=== PATIENT | female | born 1985 | race Caucasian/White ===

== ENCOUNTER 2018-07-20 10:57 | Emergency (ER) | payer OTHER ==
[2018-07-20 11:26] VITALS: BP 125/75; PULSE 80; RESP 18; TEMP 100.7
--- NOTE | 2018-07-20 11:59 | ED ---
URI HPI - General Chief Complaint: Upper Respiratory Infection Stated Complaint: Cold Time Seen by Provider: 07/20/18 11:35 Source: patient, RN notes reviewed, old records reviewed Mode of arrival: ambulatory Limitations: no limitations - History of Present Illness Initial Comments: 33 year old presents with fever, cough, upper respiratory congestion. Patient has had history of sick contacts with son with similiar complaints. Patient has had no recent motrin or tylenol. She is a smoker. She reports that her cough is productive. - Related Data Previous Rx's Medication Instructions Recorded Acetaminophen Tab [Tylenol Tab] 500 mg PO Q6H #20 tablet 07/20/18 Albuterol Inhaler [Ventolin Hfa 1 - 2 puff INHALATION RT-Q6H PRN 07/20/18 Inhaler] #1 inhaler Azithromycin [Zithromax Z-pack] 250 mg PO DIRECTED #6 tab 07/20/18 guaiFENesin-DM 600/30MG [Mucinex 2 each PO Q12HR #20 tab.er.12h 07/20/18 Dm] methylPREDNISolone Dose Pack 4 mg PO DIRECTED #21 package 07/20/18 [Medrol Dose Pack] Allergies Allergy/AdvReac Type Severity Reaction Status Date / Time morphine Allergy Chest Pain Verified 07/20/18 11:27 Review of Systems ROS Statement: Those systems with pertinent positive or pertinent negative responses have been documented in the HPI. ROS Other: All systems not noted in ROS Statement are negative. Past Medical History Past Medical History: COPD Additional Past Medical History / Comment(s): anemia, hep C History of Any Multi-Drug Resistant Organisms: None Reported Past Surgical History: Section, Cholecystectomy Additional Past Surgical History / Comment(s): e-sure procedure Past Psychological History: No Psychological Hx Reported Smoking Status: Current every day smoker Past Alcohol Use History: Occasional Past Drug Use History: Marijuana General Exam - General Exam Comments Initial Comments: This is a well appearing 33 year old female, no distress. Limitations: no limitations General appearance: alert, in no apparent distress Head exam: Present: atraumatic, normocephalic, normal inspection Eye exam: Present: normal appearance, PERRL, EOMI. Absent: scleral icterus, conjunctival injection, periorbital swelling ENT exam: Present: normal exam, mucous membranes moist Neck exam: Present: normal inspection. Absent: tenderness, meningismus, lymphadenopathy Respiratory exam: Present: normal lung sounds bilaterally, rhonchi (Rhonchi noted, cleared with coughing. ), other (Productive cough). Absent: respiratory distress, wheezes, rales, stridor GI/Abdominal exam: Present: soft, normal bowel sounds. Absent: distended, tenderness, guarding, rebound, rigid Extremities exam: Present: normal inspection, full ROM, normal capillary refill. Absent: tenderness, pedal edema, joint swelling, calf tenderness Back exam: Present: normal inspection Neurological exam: Present: alert, oriented X3, CN II-XII intact Psychiatric exam: Present: normal affect, normal mood Skin exam: Present: warm, dry, intact, normal color. Absent: rash Course Vital Signs 07/20/18 07/20/18 11:23 12:23 Temperature 100.7 F H Pulse Rate 80 Respiratory 18 18 Rate Blood Pressure 125/75 O2 Sat by Pulse 100 Oximetry Medical Decision Making - Medical Decision Making 33 year old female with fever, cough, and history of sick contacts. Patient has had symptoms for 1 week. Patient has rhoncus long sounds cleared with coughing. She arrives withfever. At this time will treat patient for bronchitis. Discharge with steriods and Zpak. All question answered and return parameters discussed. Disposition Clinical Impression: Upper respiratory infection Disposition: HOME SELF-CARE Condition: Good Instructions: Upper Respiratory Infection (ED) Additional Instructions: Patient has follow-up with primary care physician. Take the medication as prescribed. Continue [id number] cough and congestion syrup. Return to emergency department if any alarming signs or symptoms occur. Prescriptions: Acetaminophen Tab [Tylenol Tab] 500 mg PO Q6H #20 tablet Albuterol Inhaler [Ventolin Hfa Inhaler] 1 - 2 puff INHALATION RT-Q6H PRN #1 inhaler PRN Reason: Shortness Of Breath Azithromycin [Zithromax Z-pack] 250 mg PO DIRECTED #6 tab guaiFENesin-DM 600/30MG [Mucinex Dm] 2 each PO Q12HR #20 tab.er.12h methylPREDNISolone Dose Pack [Medrol Dose Pack] 4 mg PO DIRECTED #21 package Is patient prescribed a controlled substance at d/c from ED?: No Referrals: None,Stated [Primary Care Provider] - 1-2 days Steph Grant MD [STAFF PHYSICIAN] - 1-2 days Time of Disposition: 11:56
== END 2018-07-20 12:24 | disposition home or self-care (01) ==
LOC: EC 10:57
DX: J06.9 Acute upper respiratory infection, unspecified (principal); J40 Bronchitis, not specified as acute or chronic; F17.200 Nicotine dependence, unspecified, uncomplicated; Z88.5 Allergy status to narcotic agent
CPT/HCPCS: 99283

== ENCOUNTER 2019-03-11 15:39 | Emergency (ER) | payer OTHER ==
[2019-03-11 15:46] VITALS: TEMP 98.3
[2019-03-11] MEDS ORDERED: IPRATROPIUM-ALBUTEROL 3 ML NEB INHALATION STA (16:17)
--- NOTE | 2019-03-11 16:18 | ED ---
General Adult HPI - General Chief complaint: Upper Respiratory Infection Stated complaint: Chest congestion Time Seen by Provider: 03/11/19 16:03 Source: patient, RN notes reviewed Mode of arrival: ambulatory Limitations: no limitations - History of Present Illness Initial comments: 33-year-old female with a past medical history of COPD presents to the emergency department for a chief complaint of cough and congestion times one week. Patient states this started as a sore throat and congestion. Patient states she is now coughing. States cough is productive. Denies any significant shortness of breath. States that when she coughs hard sometimes her chest hurts but denies chest pain otherwise. Patient states the last time she felt like this sh e had pneumonia and would like to make sure that is not happening. States she also had her bring her daughter in for her wrist so. She would be evaluated.Patient has no other complaints at this time including shortness of breath, chest pain, abdominal pain, nausea or vomiting, headache, or visual changes. - Related Data Previous Rx's Medication Instructions Recorded Acetaminophen Tab [Tylenol Tab] 500 mg PO Q6H #20 tablet 07/20/18 Albuterol Inhaler [Ventolin Hfa 1 - 2 puff INHALATION RT-Q6H PRN 07/20/18 Inhaler] #1 inhaler Azithromycin [Zithromax Z-pack] 250 mg PO DIRECTED #6 tab 07/20/18 guaiFENesin-DM 600/30MG [Mucinex 2 each PO Q12HR #20 tab.er.12h 07/20/18 Dm] methylPREDNISolone Dose Pack 4 mg PO DIRECTED #21 package 07/20/18 [Medrol Dose Pack] Azithromycin [Zithromax Z-pack] 250 mg PO DIRECTED #6 tab 03/11/19 predniSONE 50 mg PO DAILY #5 tablet 03/11/19 Allergies Allergy/AdvReac Type Severity Reaction Status Date / Time morphine Allergy Chest Pain Verified 03/11/19 15:46 Review of Systems ROS Statement: Those systems with pertinent positive or pertinent negative responses have been documented in the HPI. ROS Other: All systems not noted in ROS Statement are negative. Past Medical History Past Medical History: COPD Additional Past Medical History / Comment(s): anemia, hep C History of Any Multi-Drug Resistant Organisms: None Reported Past Surgical History: Section, Cholecystectomy Additional Past Surgical History / Comment(s): e-sure procedure Past Psychological History: No Psychological Hx Reported Smoking Status: Current every day smoker Past Alcohol Use History: Occasional Past Drug Use History: Marijuana General Exam Limitations: no limitations General appearance: alert, in no apparent distress Head exam: Present: atraumatic, normocephalic, normal inspection Eye exam: Present: normal appearance, PERRL, EOMI. Absent: scleral icterus, conjunctival injection, periorbital swelling ENT exam: Present: normal exam, normal oropharynx, mucous membranes moist, TM's normal bilaterally, normal external ear exam, other (Nasal congestion noted) Neck exam: Present: normal inspection, full ROM. Absent: tenderness, meningismus, lymphadenopathy Respiratory exam: Present: normal lung sounds bilaterally, wheezes (Mild wheezes noted in both lung bases.), chest wall tenderness (Patient does have some chest wall tenderness with palpation.). Absent: respiratory distress, rales, rhonchi, stridor Cardiovascular Exam: Present: regular rate, normal rhythm, normal heart sounds. Absent: systolic murmur, diastolic murmur, rubs, gallop, clicks Neurological exam: Present: alert, oriented X3, CN II-XII intact Psychiatric exam: Present: normal affect, normal mood Course Vital Signs 03/11/19 03/11/19 03/11/19 15:44 16:45 16:53 Temperature 98.3 F Pulse Rate 90 72 76 Respiratory 16 Rate Blood Pressure 128/78 O2 Sat by Pulse 100 Oximetry 03/11/19 17:05 Temperature Pulse Rate Respiratory 18 Rate Blood Pressure O2 Sat by Pulse Oximetry Medical Decision Making - Medical Decision Making 33-year-old female presents to the emergency determine for chief complaint of sore throat cough and congestion. States this is been going on for about a week. States her throat has resolved the patient is still congested and coughing. States cough is productive. Patient is a smoker and is currently smoking. I did discuss greater than 3 minutes of smoking cessation with patient. On exam patient has mild wheezes noted in the lung bases. She does have some tenderness noted of the anterior chest wall as well. Vitals are st able. A chest x-ray negative for pneumonia. Patient will be treated for COPD exacerbation with azithromycin, steroids. Patient will follow up with primary care in 1-2 days or return here if she has any worsening symptoms. Patient does have an albuterol inhaler at home. Disposition Clinical Impression: COPD exacerbation, Cough Disposition: HOME SELF-CARE Condition: Good Instructions (If sedation given, give patient instructions): Upper Respiratory Infection (ED) Additional Instructions: Please take antibiotic and steroid as directed. Use albuterol inhaler as directed. Return here to the emergency department for having any worsening symptoms. Otherwise follow-up with your primary care physician tomorrow. Prescriptions: predniSONE 50 mg PO DAILY #5 tablet Azithromycin [Zithromax Z-pack] 250 mg PO DIRECTED #6 tab Is patient prescribed a controlled substance at d/c from ED?: No Referrals: Chato Cruz MD [Primary Care Provider] - 1-2 days Time of Disposition: 17:46
--- NOTE | 2019-03-11 16:40 | XR ---
EXAMINATION TYPE: XR chest 2V DATE OF EXAM: 03/11/2019 COMPARISON: NONE HISTORY: Cough TECHNIQUE: Frontal and lateral views of the chest are obtained. FINDINGS: Heart and mediastinum are normal. Lungs are clear. Diaphragm is normal. Bony thorax appear s normal. IMPRESSION: Normal chest. No change.
[2019-03-11 18:19] VITALS: BP 121/78; PULSE 89; RESP 16
== END 2019-03-11 18:15 | disposition home or self-care (01) ==
LOC: EC 15:39
DX: J44.1 Chronic obstructive pulmonary disease with (acute) exacerbation (principal); Z71.6 Tobacco abuse counseling; F17.200 Nicotine dependence, unspecified, uncomplicated; Z88.5 Allergy status to narcotic agent
CPT/HCPCS: 71046; 94640; 99283; 99406

== ENCOUNTER 2019-06-01 16:43 | Emergency (ER) | payer OTHER ==
[2019-06-01 17:57] LABS: Appearance,Urine Cloudy (Clear); Bilirubin,Urine Negative (Negative); Blood,Urine Moderate (Negative); Color,Urine Yellow; Glucose,Urine (UA) Negative (Negative); Ketones,Urine Negative (Negative); Leukocyte Esterase,Urine Moderate (Negative); Mucus,Urine Many /hpf; Nitrite,Urine Negative (Negative); Protein,Urine Trace (Negative); RBC,Urine 15 /hpf (0-5); Squamous Epithelial Cell,Urine 5 /hpf (0-4)
[2019-06-01] MEDS ORDERED: AZITHROMYCIN 250 MG TAB PO STA (17:59)
[2019-06-01] MEDS ORDERED: cefTRIAXone 250 MG VIAL IM STA (17:59)
[2019-06-01 18:47] LABS: African American GFR (CKD) >90 (>60 ml/min/1.73 sqM); Anion Gap 7 mmol/L; Basophils % (A) 0 %; Blood Urea Nitrogen 15 mg/dL (7-17); Calcium 9.2 mg/dL (8.4-10.2); Carbon Dioxide 26 mmol/L (22-30); Chloride 108 mmol/L (98-107); Eosinophils # (A) 0.1 k/uL (0-0.7); Eosinophils % (A) 1 %; Glucose 103 mg/dL (74-99); HCT 35.6 % (34.0-46.0); HGB 11.3 gm/dL (11.4-16.0); Hypochromasia Slight; Lymphocytes # (A) 2.6 k/uL (1.0-4.8); Lymphocytes % (A) 37 %; MCH 25.7 pg (25.0-35.0); MCHC 31.7 g/dL (31.0-37.0); MCV 81.3 fL (80.0-100.0); Mean Platelet Volume 7.7; Monocytes # (A) 0.6 k/uL (0-1.0); Monocytes % (A) 8 %; Neutrophils # (A) 3.6 k/uL (1.3-7.7); Neutrophils % (A) 51 %; Platelet Count 334 k/uL (150-450); Potassium 3.4 mmol/L (3.5-5.1); RBC 4.39 m/uL (3.80-5.40); RDW 15.8 % (11.5-15.5); Sodium 141 mmol/L (137-145); WBC 7.2 k/uL (3.8-10.6)
[2019-06-01] MEDS ORDERED: cefTRIAXone 250 MG VIAL IV STA (19:32)
[2019-06-01 19:59] VITALS: BP 130/84; PULSE 54; RESP 18
--- NOTE | 2019-06-01 20:12 | ED ---
Female Urogenital HPI - General Chief complaint: Urogenital Stated complaint: poss UTI Time Seen by Provider: 06/01/19 17:15 Source: patient Mode of arrival: ambulatory Limitations: no limitations - History of Present Illness Initial comments: The patient is a 33-year-old female who presents to the emergency department with complaint of dysuria. Admits to a history of previous UTI in the past and states this feels similar. She did have burning with urination that started yesterday. Reports that she has progressed from having pink urine to gross b lood. She denies a history of nephrolithiasis. She does report to suprapubic discomfort and cramping. Just prior to arrival she began having right-sided flank pain. No reported fevers or chills. No nausea or vomiting. She denies any abdominal trauma. No abnormal vaginal bleeding or discharge. She denies concern for . Does report that she has had unprotected sex with 2 partners this month. The patient does report a possibility of sexually transmitted infections. She also reports to a bump to her right labia. Patient attributed the lesion to recent shaving. She denies any bleeding. She denies any changes in her bowel movements include diarrhea, constipation, melanotic st ool or hematochezia. She denies any chest pain or difficult breathing. There are no other alleviating, precipitating or modifying factors - Related Data Previous Rx's Medication Instructions Recorded Cephalexin [Keflex] 500 mg PO BID 10 Days #20 cap 06/01/19 Allergies Allergy/AdvReac Type Severity Reaction Status Date / Time morphine Allergy Chest Pain Verified 06/01/19 18:32 Review of Systems ROS Statement: Those systems with pertinent positive or pertinent negative responses have been documented in the HPI. ROS Other: All systems not noted in ROS Statement are negative. Past Medical History Past Medical History: COPD Additional Past Medical History / Comment(s): anemia, hep C History of Any Multi-Drug Resistant Organisms: None Reported Past Surgical History: Section, Cholecystectomy Additional Past Surgical History / Comment(s): e-sure procedure Past Psychological History: No Psychological Hx Reported Smoking Status: Current every day smoker Past Alcohol Use History: Occasional Past Drug Use History: Marijuana General Exam Limitations: no limitations General appearance: alert, in no apparent distress Head exam: Present: atraumatic, normocephalic, normal inspection Eye exam: Present: normal appearance, PERRL, EOMI. Absent: scleral icterus, conjunctival injection, periorbital swelling ENT exam: Present: normal exam, mucous membranes moist Neck exam: Present: normal inspection. Absent: tenderness, meningismus, lymphadenopathy Respiratory exam: Present: normal lung sounds bilaterally. Absent: respiratory distress, wheezes, rales, rhonchi, stridor Cardiovascular Exam: Present: regular rate, normal rhythm, normal heart sounds. Absent: systolic murmur, diastolic murmur, rubs, gallop, clicks GI/Abdominal exam: Present: soft, normal bowel sounds. Absent: distended, tenderness, guarding, rebound, rigid External exam: Present: lesions, other (multiple ulcerative lesions - two on the right labia minor and one on the left) Speculum exam: Present: normal speculum exam, vaginal bleeding. Absent: erythema, vaginal discharge, cervical discharge By manual exam: Present: normal by manual exam. Absent: cervical motion tenderness Extremities exam: Present: normal inspection, full ROM, normal capillary refill. Absent: tenderness, pedal edema, joint swelling, calf tenderness Back exam: Present: normal inspection, CVA tenderness (R) Neurological exam: Present: alert, oriented X3, CN II-XII intact Psychiatric exam: Present: normal affect, normal mood Skin exam: Present: warm, dry, intact, normal color. Absent: rash Course Vital Signs 06/01/19 06/01/19 06/01/19 17:09 18:24 19:00 Temperature 98 F Pulse Rate 76 70 73 Respiratory 18 12 12 Rate Blood Pressure 162/96 132/82 130/77 O2 Sat by Pulse 100 96 99 Oximetry 06/01/19 06/01/19 19:30 20:22 Temperature 98.6 F Pulse Rate 54 L Respiratory 18 Rate Blood Pressure 130/84 O2 Sat by Pulse 94 L Oximetry Medical Decision Making - Medical Decision Making Upon arrival the patient was placed into room 18. She is hooked continuous pulse ox and cardiac monitoring. I did discuss the diagnosis, differential and treatment options. As the patient does have a history of unprotected intercourse I did recommend valuation and treatment for sexually transmitted infections. The patient did agree to this. Pelvic exam was performed and cultures were obtained. The patient does have multiple lesions noted to her labia minora. I did take samples for HSV. I recommended treatment with azithromycin and Rocephin for which the patient did agree. She did provide a urine sample. Laboratory studies were conducted. Results are reviewed with the patient. I will treat the patient for pyelonephritis. She is given a prescription for Keflex. I did inform her that I will call her with culture results in 48 hours. She should be seen at the health department and evaluated for further sexually transmitted infections to include HIV and hepatitis. Patient understood this. She has any new or worsening symptoms to include feve rs and chills, she should return to the emergency room. The patient was then discharged home in stable condition - Differential Diagnosis acute pyelonephritis, acute cervicitis, PID, - Lab Data Result diagrams: 06/01/19 18:23 06/01/19 18:23 Lab Results 06/01/19 06/01/19 06/01/19 Range/Units 17:40 17:40 18:23 WBC (3.8-10.6) k/uL RBC (3.80-5.40) m/uL Hgb (11.4-16.0) gm/dL Hct (34.0-46.0) % MCV (80.0-100.0) fL MCH (25.0-35.0) pg MCHC (31.0-37.0) g/dL RDW (11.5-15.5) % Plt Count (150-450) k/uL Neutrophils % % Lymphocytes % % Monocytes % % Eosinophils % % Basophils % % Neutrophils # (1.3-7.7) k/uL Lymphocytes # (1.0-4.8) k/uL Monocytes # (0-1.0) k/uL Eosinophils # (0-0.7) k/uL Basophils # (0-0.2) k/uL Hypochromasia Sodium 141 (137-145) mmol/L Potassium 3.4 L (3.5-5.1) mmol/L Chloride 108 H (98-107) mmol/L Carbon Dioxide 26 (22-30) mmol/L Anion Gap 7 mmol/L BUN 15 (7-17) mg/dL Creatinine 0.62 (0.52-1.04) mg/dL Est GFR (CKD-EPI)AfAm >90 (>60 ml/min/1.73 sqM) Est GFR (CKD-EPI)NonAf >90 (>60 ml/min/1.73 sqM) Glucose 103 H (74-99) mg/dL Calcium 9.2 (8.4-10.2) mg/dL Urine Color Yellow Urine Appearance Cloudy H (Clear) Urine pH 6.0 (5.0-8.0) Ur Specific [place] 1.020 (1.001-1.035) Urine Protein Trace H (Negative) Urine Glucose (UA) Negative (Negative) Urine Ketones Negative (Negative) Urine Blood Moderate H (Negative) Urine Nitrite Negative (Negative) Urine Bilirubin Negative (Negative) Urine Urobilinogen 2.0 (<2.0) mg/dL Ur Leukocyte Esterase Moderate H (Negative) Urine RBC 15 H (0-5) /hpf Urine WBC 18 H (0-5) /hpf Ur Squamous Epith Cells 5 H (0-4) /hpf Urine Mucus Many H (None) /hpf Urine HCG, Qual Not Detected (Not Detectd) Chlamydia Source Chlamydia DNA (PCR) (Neg,Equiv) N. gonorrhoeae Source N.gonorrhoeae DNA Probe (Neg,Equiv) Trichomonas Ag (Rapid) (Negative) 06/01/19 06/01/19 06/01/19 Range/Units 18:23 18:29 19:26 WBC 7.2 (3.8-10.6) k/uL RBC 4.39 (3.80-5.40) m/uL Hgb 11.3 L (11.4-16.0) gm/dL Hct 35.6 (34.0-46.0) % MCV 81.3 (80.0-100.0) fL MCH 25.7 (25.0-35.0) pg MCHC 31.7 (31.0-37.0) g/dL RDW 15.8 H (11.5-15.5) % Plt Count 334 (150-450) k/uL Neutrophils % 51 % Lymphocytes % 37 % Monocytes % 8 % Eosinophils % 1 % Basophils % 0 % Neutrophils # 3.6 (1.3-7.7) k/uL Lymphocytes # 2.6 (1.0-4.8) k/uL Monocytes # 0.6 (0-1.0) k/uL Eosinophils # 0.1 (0-0.7) k/uL Basophils # 0.0 (0-0.2) k/uL Hypochromasia Slight Sodium (137-145) mmol/L Potassium (3.5-5.1) mmol/L Chloride (98-107) mmol/L Carbon Dioxide (22-30) mmol/L Anion Gap mmol/L BUN (7-17) mg/dL Creatinine (0.52-1.04) mg/dL Est GFR (CKD-EPI)AfAm (>60 ml/min/1.73 sqM) Est GFR (CKD-EPI)NonAf (>60 ml/min/1.73 sqM) Glucose (74-99) mg/dL Calcium (8.4-10.2) mg/dL Urine Color Urine Appearance (Clear) Urine pH (5.0-8.0) Ur Specific [place] (1.001-1.035) Urine Protein (Negative) Urine Glucose (UA) (Negative) Urine Ketones (Negative) Urine Blood (Negative) Urine Nitrite (Negative) Urine Bilirubin (Negative) Urine Urobilinogen (<2.0) mg/dL Ur Leukocyte Esterase (Negative) Urine RBC (0-5) /hpf Urine WBC (0-5) /hpf Ur Squamous Epith Cells (0-4) /hpf Urine Mucus (None) /hpf Urine HCG, Qual (Not Detectd) Chlamydia Source Vagina Chlamydia DNA (PCR) Negative (Neg,Equiv) N. gonorrhoeae Source N.gonorrhoeae DNA Probe (Neg,Equiv) Trichomonas Ag (Rapid) Negative (Negative) 06/01/19 Range/Units 19:26 WBC (3.8-10.6) k/uL RBC (3.80-5.40) m/uL Hgb (11.4-16.0) gm/dL Hct (34.0-46.0) % MCV (80.0-100.0) fL MCH (25.0-35.0) pg MCHC (31.0-37.0) g/dL RDW (11.5-15.5) % Plt Count (150-450) k/uL Neutrophils % % Lymphocytes % % Monocytes % % Eosinophils % % Basophils % % Neutrophils # (1.3-7.7) k/uL Lymphocytes # (1.0-4.8) k/uL Monocytes # (0-1.0) k/uL Eosinophils # (0-0.7) k/uL Basophils # (0-0.2) k/uL Hypochromasia Sodium (137-145) mmol/L Potassium (3.5-5.1) mmol/L Chloride (98-107) mmol/L Carbon Dioxide (22-30) mmol/L Anion Gap mmol/L BUN (7-17) mg/dL Creatinine (0.52-1.04) mg/dL Est GFR (CKD-EPI)AfAm (>60 ml/min/1.73 sqM) Est GFR (CKD-EPI)NonAf (>60 ml/min/1.73 sqM) Glucose (74-99) mg/dL Calcium (8.4-10.2) mg/dL Urine Color Urine Appearance (Clear) Urine pH (5.0-8.0) Ur Specific [place] (1.001-1.035) Urine Protein (Negative) Urine Glucose (UA) (Negative) Urine Ketones (Negative) Urine Blood (Negative) Urine Nitrite (Negative) Urine Bilirubin (Negative) Urine Urobilinogen (<2.0) mg/dL Ur Leukocyte Esterase (Negative) Urine RBC (0-5) /hpf Urine WBC (0-5) /hpf Ur Squamous Epith Cells (0-4) /hpf Urine Mucus (None) /hpf Urine HCG, Qual (Not Detectd) Chlamydia Source Chlamydia DNA (PCR) (Neg,Equiv) N. gonorrhoeae Source Vagina N.gonorrhoeae DNA Probe Negative (Neg,Equiv) Trichomonas Ag (Rapid) (Negative) Disposition Clinical Impression: Urinary tract infection, Pyelonephritis Disposition: HOME SELF-CARE Condition: Stable Instructions (If sedation given, give patient instructions): Urinary Tract Infection in Women (ED) Additional Instructions: Please follow-up with your primary care doctor in 1-2 days. Return to the emergency room for any new or worsening symptoms. Prescriptions: Cephalexin [Keflex] 500 mg PO BID 10 Days #20 cap Is patient prescribed a controlled substance at d/c from ED?: No Referrals: Chato Cruz MD [Primary Care Provider] - 1-2 days Time of Disposition: 20:12
[2019-06-01 20:26] VITALS: TEMP 98.6
[2019-06-03 14:53] LABS: N. gonorrhoeae,PCR Negative (Neg,Equiv); Neisseria Source Vagina
[2019-06-03 15:14] LABS: C. trachomatis,PCR Negative (Neg,Equiv); Chlamydia trachomatis Source Vagina
== END 2019-06-01 20:27 | disposition home or self-care (01) ==
LOC: EC 16:43
DX: N12 Tubulo-interstitial nephritis, not specified as acute or chronic (principal); N90.89 Other specified noninflammatory disorders of vulva and perineum; N93.9 Abnormal uterine and vaginal bleeding, unspecified; F17.200 Nicotine dependence, unspecified, uncomplicated; Z88.5 Allergy status to narcotic agent; Z90.49 Acquired absence of other specified parts of digestive tract; Z53.8 Procedure and treatment not carried out for other reasons
CPT/HCPCS: 99284; 96374; 36415; 87529; 80048; 85025; 81001; 81025; 87808; 87491; 87591; 87070; 87086; 87205; J0696

== ENCOUNTER 2020-07-17 07:49 | Emergency (ER) | payer OTHER ==
[2020-07-17 07:57] VITALS: RESP 18; TEMP 98
--- NOTE | 2020-07-17 08:16 | ED ---
Abdominal Pain HPI - General Chief Complaint: Abdominal Pain Stated Complaint: Abd/back pain Time Seen by Provider: 07/17/20 08:01 Source: patient Mode of arrival: ambulatory Limitations: no limitations - History of Present Illness Initial Comments: 35yo female presenting to the ER today for cc of lower pelvic pain, discharge, low back pain. Patient states that she has had some low back discomfort a week ago she thinks it was her back no related to the belly. She states she had one episode of right side pain that went away. Patient states that the past 2-3 days she has had pain of her lower pelvic region up to button of belly button. States the pain is of the b/l pelvic region not one side over the other, at times right sided sharp pain. Patient denies fevers, admits to nausea without vomiting. Admits to vaginal discharge. Patient denies dysuria, urgency, frequency, hematuria. Pt also endorses weight gain of ~20lbs over the past 1-2 months. Patient denies additional complaints. - Related Data Previous Rx's Medication Instructions Recorded Doxycycline [Vibramycin] 100 mg PO BID 14 Days #28 capsule 07/17/20 Allergies Allergy/AdvReac Type Severity Reaction Status Date / Time morphine Allergy Chest Pain Verified 07/17/20 09:32 Review of Systems ROS Statement: Those systems with pertinent positive or pertinent negative responses have been documented in the HPI. ROS Other: All systems not noted in ROS Statement are negative. Past Medical History Past Medical History: COPD Additional Past Medical History / Comment(s): anemia, hep C History of Any Multi-Drug Resistant Organisms: None Reported Past Surgical History: Section, Cholecystectomy Additional Past Surgical History / Comment(s): e-sure procedure Past Psychological History: No Psychological Hx Reported Smoking Status: Current every day smoker Past Alcohol Use History: None Reported Past Drug Use History: None Reported General Exam - General Exam Comments Initial Comments: General: The patient is awake and alert, in no distress Eye: +3 mm pupils are equal, round and reactive to light, extra-ocular movements are intact. No nystagmus. There is normal conjunctiva bilaterally. No signs of icterus. Ears, nose, mouth and throat: There are moist mucous membranes and no oral lesions. Neck: The neck is supple, there is no tenderness or JVD. Cardiovascular: There is a regular rate and rhythm. No murmur, rub or gallop is appreciated. Respiratory: Lungs are clear to auscultation, respirations are non-labored, breath sounds are equal. No wheezes, stridor, rales, or rhonchi. Gastrointestinal: Soft, non-distended, pain midline lower abdomen, just below the belly button and of the lower pelvic region b/l,abdomen without masses or organomegaly noted. There is no rebound or guarding present. Musculoskeletal: Normal ROM, no tenderness. Strength 5/5. Sensation intact. Radial pulses equal bilaterally 2+. Neurological: A&O x 3. CN II-XII intact grossly, There are no obvious motor or sensory deficits. Coordination appears grossly intact. Speech is normal. Skin: Skin is warm and dry and no rashes or lesions are noted. Psychiatric: Cooperative, appropriate mood & affect, normal judgment. Limitations: no limitations Course Vital Signs 07/17/20 07/17/20 07:55 09:45 Temperature 98 F 98 F Pulse Rate 98 80 Respiratory 18 18 Rate Blood Pressure 138/73 133/86 O2 Sat by Pulse 99 100 Oximetry Medical Decision Making - Medical Decision Making Labs mild leukocytosis. no fever. discharge on exam, no cervical motion or adnexal tenderness. Pt notes odor with discharge. Patient trichomonas in urine. she has concern for STI. Patient treated given the pelvic pain will treat for PID. Patient US reveals right ovarian cyst with some internal debris. HCG (-). At this time I feel patient is stable for discharge. we discussed safe sex. importance of partner treatment and return for fevers, increasing pain. I discussed importance of OBGYN care and pcp/OBGYN f/u. - Lab Data Result diagrams: 07/17/20 08:09 07/17/20 08:09 Lab Results 07/17/20 07/17/20 07/17/20 Range/Units 08:06 08:06 08:09 WBC 13.1 H (3.8-10.6) k/uL RBC 4.76 (3.80-5.40) m/uL Hgb 11.5 (11.4-16.0) gm/dL Hct 36.2 (34.0-46.0) % MCV 76.1 L (80.0-100.0) fL MCH 24.1 L (25.0-35.0) pg MCHC 31.7 (31.0-37.0) g/dL RDW 14.9 (11.5-15.5) % Plt Count 331 (150-450) k/uL Neutrophils % 60 % Lymphocytes % 27 % Monocytes % 6 % Eosinophils % 4 % Basophils % 0 % Neutrophils # 7.9 H (1.3-7.7) k/uL Lymphocytes # 3.6 (1.0-4.8) k/uL Monocytes # 0.8 (0-1.0) k/uL Eosinophils # 0.5 (0-0.7) k/uL Basophils # 0.1 (0-0.2) k/uL Hypochromasia Slight Microcytosis Slight Sodium (137-145) mmol/L Potassium (3.5-5.1) mmol/L Chloride (98-107) mmol/L Carbon Dioxide (22-30) mmol/L Anion Gap mmol/L BUN (7-17) mg/dL Creatinine (0.52-1.04) mg/dL Est GFR (CKD-EPI)AfAm (>60 ml/min/1.73 sqM) Est GFR (CKD-EPI)NonAf (>60 ml/min/1.73 sqM) Glucose (74-99) mg/dL Calcium (8.4-10.2) mg/dL Total Bilirubin (0.2-1.3) mg/dL AST (14-36) U/L ALT (4-34) U/L Alkaline Phosphatase (38-126) U/L Total Protein (6.3-8.2) g/dL Albumin (3.5-5.0) g/dL Amylase (30-110) U/L Lipase (23-300) U/L Urine Color Yellow Urine Appearance Cloudy H (Clear) Urine pH 5.5 (5.0-8.0) Ur Specific [place] 1.023 (1.001-1.035) Urine Protein Negative (Negative) Urine Glucose (UA) Negative (Negative) Urine Ketones Negative (Negative) Urine Blood Negative (Negative) Urine Nitrite Negative (Negative) Urine Bilirubin Negative (Negative) Urine Urobilinogen <2.0 (<2.0) mg/dL Ur Leukocyte Esterase Large H (Negative) Urine RBC 3 (0-5) /hpf Urine WBC 8 H (0-5) /hpf Ur Squamous Epith Cells 11 H (0-4) /hpf Amorphous Sediment Rare H (None) /hpf Urine Bacteria Rare H (None) /hpf Urine Mucus Many H (None) /hpf Urine Trichomonas Rare H (None) /hpf Urine HCG, Qual Not Detected (Not Detectd) 07/17/20 Range/Units 08:09 WBC (3.8-10.6) k/uL RBC (3.80-5.40) m/uL Hgb (11.4-16.0) gm/dL Hct (34.0-46.0) % MCV (80.0-100.0) fL MCH (25.0-35.0) pg MCHC (31.0-37.0) g/dL RDW (11.5-15.5) % Plt Count (150-450) k/uL Neutrophils % % Lymphocytes % % Monocytes % % Eosinophils % % Basophils % % Neutrophils # (1.3-7.7) k/uL Lymphocytes # (1.0-4.8) k/uL Monocytes # (0-1.0) k/uL Eosinophils # (0-0.7) k/uL Basophils # (0-0.2) k/uL Hypochromasia Microcytosis Sodium 138 (137-145) mmol/L Potassium 4.3 (3.5-5.1) mmol/L Chloride 106 (98-107) mmol/L Carbon Dioxide 25 (22-30) mmol/L Anion Gap 7 mmol/L BUN 16 (7-17) mg/dL Creatinine 0.66 (0.52-1.04) mg/dL Est GFR (CKD-EPI)AfAm >90 (>60 ml/min/1.73 sqM) Est GFR (CKD-EPI)NonAf >90 (>60 ml/min/1.73 sqM) Glucose 101 H (74-99) mg/dL Calcium 9.3 (8.4-10.2) mg/dL Total Bilirubin 0.5 (0.2-1.3) mg/dL AST 27 (14-36) U/L ALT 30 (4-34) U/L Alkaline Phosphatase 91 (38-126) U/L Total Protein 7.2 (6.3-8.2) g/dL Albumin 4.1 (3.5-5.0) g/dL Amylase 49 (30-110) U/L Lipase 114 (23-300) U/L Urine Color Urine Appearance (Clear) Urine pH (5.0-8.0) Ur Specific [place] (1.001-1.035) Urine Protein (Negative) Urine Glucose (UA) (Negative) Urine Ketones (Negative) Urine Blood (Negative) Urine Nitrite (Negative) Urine Bilirubin (Negative) Urine Urobilinogen (<2.0) mg/dL Ur Leukocyte Esterase (Negative) Urine RBC (0-5) /hpf Urine WBC (0-5) /hpf Ur Squamous Epith Cells (0-4) /hpf Amorphous Sediment (None) /hpf Urine Bacteria (None) /hpf Urine Mucus (None) /hpf Urine Trichomonas (None) /hpf Urine HCG, Qual (Not Detectd) Disposition Clinical Impression: Vaginal discharge, Urogenital trichomoniasis, Pelvic pain, Right ovarian cyst Disposition: HOME SELF-CARE Condition: Good Instructions (If sedation given, give patient instructions): Ovarian Cyst (ED), Trichomoniasis (ED) Additional Instructions: Please use medication as discussed. Please follow-up with family doctor in the next 2 days, and OBGYN in next week. Please return to emergency room if the symptoms increase or worsen or for any other concerns. Prescriptions: Doxycycline [Vibramycin] 100 mg PO BID 14 Days #28 capsule Is patient prescribed a controlled substance at d/c from ED?: No Referrals: None,Stated [Primary Care Provider] - 1-2 days Time of Disposition: 09:37
[2020-07-17 08:22] LABS: Basophils # (A) 0.1 k/uL (0-0.2); Basophils % (A) 0 %; Eosinophils # (A) 0.5 k/uL (0-0.7); Eosinophils % (A) 4 %; HCT 36.2 % (34.0-46.0); HGB 11.5 gm/dL (11.4-16.0); Hypochromasia Slight; Lymphocytes # (A) 3.6 k/uL (1.0-4.8); Lymphocytes % (A) 27 %; MCH 24.1 pg (25.0-35.0); MCHC 31.7 g/dL (31.0-37.0); MCV 76.1 fL (80.0-100.0); Mean Platelet Volume 7.7; Microcytosis Slight; Monocytes # (A) 0.8 k/uL (0-1.0); Monocytes % (A) 6 %; Neutrophils # (A) 7.9 k/uL (1.3-7.7); Neutrophils % (A) 60 %; Platelet Count 331 k/uL (150-450); RBC 4.76 m/uL (3.80-5.40); RDW 14.9 % (11.5-15.5); WBC 13.1 k/uL (3.8-10.6)
[2020-07-17 08:32] LABS: Amorphous Sediment,Urine Rare /hpf; Appearance,Urine Cloudy (Clear); Bacteria,Urine Rare /hpf; Bilirubin,Urine Negative (Negative); Blood,Urine Negative (Negative); Color,Urine Yellow; Glucose,Urine (UA) Negative (Negative); Ketones,Urine Negative (Negative); Leukocyte Esterase,Urine Large (Negative); Mucus,Urine Many /hpf; Nitrite,Urine Negative (Negative); PH, Urine 5.5 (5.0-8.0); Protein,Urine Negative (Negative); RBC,Urine 3 /hpf (0-5); Specific Gravity,Urine 1.023 (1.001-1.035); Squamous Epithelial Cell,Urine 11 /hpf (0-4); Trichomonas,Urine Rare /hpf; Urobilinogen,Urine <2.0 mg/dL (<2.0); WBC,Urine 8 /hpf (0-5)
[2020-07-17 08:37] LABS: ALT 30 U/L (4-34); AST 27 U/L (14-36); African American GFR (CKD) >90 (>60 ml/min/1.73 sqM); Albumin 4.1 g/dL (3.5-5.0); Alkaline Phosphatase 91 U/L (38-126); Amylase 49 U/L (30-110); Anion Gap 7 mmol/L; Blood Urea Nitrogen 16 mg/dL (7-17); Calcium 9.3 mg/dL (8.4-10.2); Carbon Dioxide 25 mmol/L (22-30); Chloride 106 mmol/L (98-107); Glucose 101 mg/dL (74-99); Non-African American GFR(CKD) >90 (>60 ml/min/1.73 sqM); Potassium 4.3 mmol/L (3.5-5.1); Sodium 138 mmol/L (137-145); Total Bilirubin 0.5 mg/dL (0.2-1.3); Total Protein 7.2 g/dL (6.3-8.2)
[2020-07-17] MEDS ORDERED: cefTRIAXone IN SWFI 1,000 MG/10 ML SYRINGE IVP STA (08:59)
[2020-07-17] MEDS ORDERED: metroNIDAZOLE 500 MG TAB PO STA (08:59)
--- NOTE | 2020-07-17 09:15 | US ---
EXAMINATION TYPE: US transvaginal DATE OF EXAM: 07/17/2020 COMPARISON: NONE CLINICAL HISTORY: lower pelvic pain. Pelvic pain, , tubal ligation 2008 TECHNIQUE: Transvaginal (TV). Date of LMP: 1.5 - 2 weeks ago EXAM MEASUREMENTS: Uterus: 8.4 x 4.1 x 4.6 cm Endometrial Stripe: 0.5 cm Right Ovary: 3.6 x 2.3 x 3.2 cm Left Ovary: 4.6 x 2.6 x 2.2 cm 1. Uterus: Anteverted heterogeneous 2. Endometrium: appears wnl 3. Right Ovary: possible cystic area with debris = 2.9 x 1.9 x 2.0cm 4. Left Ovary: dominant follicle = 1.6cm Spectral, color and waveform doppler imaging shows good arterial and venous flow within the ovaries ; there is no evidence for ovarian torsion. 5. Bilateral Adnexa: appears wnl 6. Posterior cul-de-sac: wnl IMPRESSION: Right ovarian cyst with internal debris. Correlate clinically appropriate follow-up advised.
[2020-07-17] MEDS ORDERED: ACET/COD 300 MG/30 MG STARTER PACK 6 TAB BTL PO STA (09:35)
[2020-07-17 09:47] VITALS: BP 133/86; PULSE 80
[2020-07-18 15:37] LABS: C. trachomatis,PCR Negative (Neg,Equiv); Chlamydia trachomatis Source Vagina; N. gonorrhoeae,PCR Negative (Neg,Equiv); Neisseria Source Vagina
== END 2020-07-17 09:47 | disposition home or self-care (01) ==
LOC: EC 07:49
DX: A59.00 Urogenital trichomoniasis, unspecified (principal); N83.201 Unspecified ovarian cyst, right side; D72.829 Elevated white blood cell count, unspecified; F17.200 Nicotine dependence, unspecified, uncomplicated; Z88.5 Allergy status to narcotic agent; Z90.49 Acquired absence of other specified parts of digestive tract; Z98.890 Other specified postprocedural states
CPT/HCPCS: 36415; 80053; 82150; 83690; 85025; 81001; 81025; 87491; 87591; 87070; 93975; 76830; 96374; 99284; J0696

== ENCOUNTER 2020-10-11 12:40 | Emergency (ER) | payer OTHER ==
[2020-10-11 12:58] VITALS: BP 150/81; PULSE 99; RESP 18; TEMP 98.8
--- NOTE | 2020-10-11 13:19 | ED ---
General Adult HPI - General Chief complaint: Upper Respiratory Infection Stated complaint: Upper Respitory Issue Time Seen by Provider: 10/11/20 13:04 Source: patient, RN notes reviewed Mode of arrival: ambulatory Limitations: no limitations - History of Present Illness Initial comments: Patient is a pleasant 35-year-old female presenting to the emergency department with multiple issues and Covid exposure. Onset of symptoms was a couple of days ago. Patient does have cough. Cough is dry. Patient does have nasal congestion. Patient does have headaches and chills and myalgias and fatigue. No leg pain or leg swelling. - Related Data Previous Rx's Medication Instructions Recorded Doxycycline [Vibramycin] 100 mg PO BID 14 Days #28 capsule 07/17/20 Allergies Allergy/AdvReac Type Severity Reaction Status Date / Time morphine Allergy Chest Pain Verified 10/11/20 13:00 Review of Systems ROS Statement: Those systems with pertinent positive or pertinent negative responses have been documented in the HPI. ROS Other: All systems not noted in ROS Statement are negative. Constitutional: Reports: fever, chills Eyes: Denies: eye pain ENT: Denies: ear pain Respiratory: Reports: cough Cardiovascular: Denies: chest pain Endocrine: Reports: fatigue Gastrointestinal: Reports: nausea. Denies: abdominal pain Genitourinary: Denies: dysuria Musculoskeletal: Denies: back pain Skin: Denies: rash Neurological: Denies: weakness Past Medical History Past Medical History: COPD Additional Past Medical History / Comment(s): anemia, hep C History of Any Multi-Drug Resistant Organisms: None Reported Past Surgical History: Section, Cholecystectomy Additional Past Surgical History / Comment(s): e-sure procedure Past Psychological History: No Psychological Hx Reported Smoking Status: Current every day smoker Past Alcohol Use History: None Reported Past Drug Use History: None Reported General Exam Limitations: no limitations General appearance: alert, in no apparent distress Head exam: Present: normocephalic Eye exam: Present: normal appearance Neck exam: Present: normal inspection Respiratory exam: Present: normal lung sounds bilaterally Cardiovascular Exam: Present: regular rate, normal rhythm GI/Abdominal exam: Present: soft. Absent: tenderness Extremities exam: Present: normal inspection. Absent: pedal edema, calf tenderness Neurological exam: Present: alert Psychiatric exam: Present: normal affect, normal mood Skin exam: Present: normal color Course Vital Signs 10/11/20 12:56 Temperature 98.8 F Pulse Rate 99 Respiratory 18 Rate Blood Pressure 150/81 O2 Sat by Pulse 100 Oximetry Medical Decision Making - Medical Decision Making Patient reevaluated and updated. - Radiology Data Radiology results: image reviewed (Chest x-ray shows no acute process) Disposition Clinical Impression: Viral syndrome Disposition: HOME SELF-CARE Condition: Stable Instructions (If sedation given, give patient instructions): Upper Respiratory Infection (ED) Additional Instructions: Please self quarantine until coronavirus test results are returned. Over-the- counter Tylenol as needed. [id number] vitamin C, vitamin D, and zinc daily. Return for difficulty breathing, uncontrolled vomiting, not tolerating oral intake, worsening symptoms or other concerns. Is patient prescribed a controlled substance at d/c from ED?: No Referrals: Hollis Tinoco [STAFF PHYSICIAN] - 1-2 days Time of Disposition: 14:03
--- NOTE | 2020-10-11 13:47 | XR ---
EXAMINATION TYPE: XR chest 1V portable DATE OF EXAM: 10/11/2020 COMPARISON: 03/11/2019 INDICATION: Cough TECHNIQUE: Single frontal view of the chest is obtained. FINDINGS: The heart size is normal. The pulmonary vasculature is normal. The lungs are clear. IMPRESSION: 1. No acute pulmonary process.
== END 2020-10-11 14:10 | disposition home or self-care (01) ==
LOC: EC 12:40
DX: B34.9 Viral infection, unspecified (principal); J44.9 Chronic obstructive pulmonary disease, unspecified; F17.200 Nicotine dependence, unspecified, uncomplicated; Z88.5 Allergy status to narcotic agent
CPT/HCPCS: 71045; 99283; U0003